=== PATIENT | female | born 1955 | race Caucasian/White ===

== ENCOUNTER 2016-05-24 06:30 | Emergency (ER) | payer MEDICAID ==
[2016-04-12 15:06] VITALS: BMI 39.6
[~2016-05-24 06:30] MED LIST: BENZTROPINE MESY1 MG PO; CARAFATE1 G PO; CYCLOBENZAPRINE10 MG PO; DILAUDID4 MG PO; HYDROCODONE-APA1 TAB PO; IBUPROFEN800 MG PO; LIPITOR80 MG PO; PERCOCET 10/3251 TA1 PO; PRILOSEC20 MG PO; PROLIXIN DEC25 MG/ML IM; REXULTI1 MG PO; SYNTHROID75 MCG PO; ULTRAM50 MG PO; VALIUM10 MG PO; XALATAN 0.0052.5 ML EACH EYE; ZESTRIL20 MG PO
[2016-05-24 08:39] LABS: APPEARANCE CLEAR (CLEAR); BILIRUBIN NEGATIVE (NEGATIVE); COLOR STRAW (YELLOW); GLUCOSE NEGATIVE (NEGATIVE); KETONE NEGATIVE (NEGATIVE); LEUKOCYTE ESTERASE NEGATIVE (NEGATIVE); NITRITE NEGATIVE (NEGATIVE); PROTEIN NEGATIVE (NEGATIVE); SPECIFIC GRAVITY 1.005 (1.005-1.020); UROBILINOGEN NORMAL (NORMAL)
== END 2016-05-24 09:00 | disposition home or self-care (01) ==
LOC: D.ER 06:30
PROVIDERS: Emergency Medicine
DX: R11.10 Vomiting, unspecified (principal); F11.23 Opioid dependence with withdrawal; T40.2X5A Adverse effect of other opioids, initial encounter; Y92.9 Unspecified place or not applicable; G89.18 Other acute postprocedural pain; M54.9 Dorsalgia, unspecified; E03.9 Hypothyroidism, unspecified

== ENCOUNTER → 2016-06-03 15:08 | Outpatient (CLI) | payer MEDICAID ==
[2016-04-12 15:06] VITALS: BMI 39.6
== END | disposition home or self-care (01) ==
LOC: D.MRI 15:00
DX: M25.552 Pain in left hip (principal)

== ENCOUNTER 2016-06-15 17:31 | Emergency (ER) | payer MEDICAID ==
[2016-04-12 15:06] VITALS: BMI 39.6
[2016-06-15 20:08] LABS: ALBUMIN 3.8 g/dL (3.4-5.0); ANION GAP 14.8 mmol/L (8-16); BILIRUBIN - TOTAL 0.43 mg/dL (0.2-1.3); CALCIUM 9.9 mg/dL (8.5-10.1); CARBON DIOXIDE 25.3 mmol/L (21.0-32.0); CREATININE - SERUM 0.9 mg/dL (0.6-1.3); POTASSIUM - SERUM 4.1 mmol/L (3.5-5.1); PROTEIN - SERUM 7.1 g/dL (6.4-8.2)
[2016-06-15 22:19] LABS: APPEARANCE CLEAR (CLEAR); BILIRUBIN NEGATIVE (NEGATIVE); COLOR YELLOW (YELLOW); GLUCOSE NEGATIVE (NEGATIVE); KETONE NEGATIVE (NEGATIVE); LEUKOCYTE ESTERASE TRACE (NEGATIVE); NITRITE NEGATIVE (NEGATIVE); PROTEIN NEGATIVE (NEGATIVE); UROBILINOGEN NORMAL (NORMAL)
[2016-06-15 22:20] LABS: BACTERIA FEW /hpf (NONE SEEN); RED CELLS - URINE OCC /hpf (0-5); WHITE CELLS - URINE OCC /hpf (0-5)
[2016-06-15 22:46] LABS: BASOPHILS 0.2 % (0.0-2.0); EOSINOPHILS 1.1 % (0-7); HEMATOCRIT 40.1 % (36.0-48.0); HEMOGLOBIN 13.3 g/dL (12-16); IMMATURE GRANULOCYTES 0.2 % (0-5); LYMPHOCYTES 25.2 % (15-50); MCH 28.2 pg (26.0-34.0); MCHC 33.2 g/dL (31.0-37.0); MEAN PLATELET VOLUME 9.3 fL (7.4-10.4); MONOCYTES 6.2 % (2-11); NEUTROPHILS 67.1 % (40-80); PLATELET COUNT 277 10x3/uL (130-400); RBC 4.72 10x6/uL (4.00-5.40); RDW 13.8 % (11.5-14.5); WBC 8.7 10x3/uL (4.8-10.8)
[2016-06-16 01:20] LABS: UDS - AMPHET NEGATIVE QUAL (NEGATIVE); UDS - BARB NEGATIVE QUAL (NEGATIVE); UDS - BENZO POSITIVE QUAL (NEGATIVE); UDS - COCAINE NEGATIVE QUAL (NEGATIVE); UDS - METH NEGATIVE QUAL (NEGATIVE); UDS - OPIATE NEGATIVE QUAL (NEGATIVE); UDS - PCP NEGATIVE QUAL (NEGATIVE); UDS - THC NEGATIVE QUAL (NEGATIVE)
== END 2016-06-16 05:53 | disposition short-term general hospital (02) ==
LOC: D.ER 17:31
PROVIDERS: Emergency Medicine; Physician Assistant Medical
DX: F41.9 Anxiety disorder, unspecified (principal); F23 Brief psychotic disorder; M54.9 Dorsalgia, unspecified; E03.9 Hypothyroidism, unspecified

== ENCOUNTER 2016-07-06 13:38 | Emergency (ER) | payer MEDICAID ==
[2016-04-12 15:06] VITALS: BMI 39.6
== END 2016-07-06 17:22 | disposition home or self-care (01) ==
LOC: D.ER 13:38
DX: J02.9 Acute pharyngitis, unspecified (principal); F41.9 Anxiety disorder, unspecified; E03.9 Hypothyroidism, unspecified

== ENCOUNTER 2016-07-14 10:48 | Emergency (ER) | payer MEDICAID ==
[2016-04-12 15:06] VITALS: BMI 39.6
== END 2016-07-14 12:22 | disposition home or self-care (01) ==
LOC: D.ER 10:48
DX: M54.5 Low back pain (principal)

== ENCOUNTER 2016-07-25 17:02 | Emergency (ER) | payer MEDICAID ==
[2016-04-12 15:06] VITALS: BMI 39.6
[2016-07-25 17:21] LABS: BASOPHILS 0.2 % (0.0-2.0); EOSINOPHILS 1.2 % (0-7); HEMATOCRIT 40.7 % (36.0-48.0); HEMOGLOBIN 13.4 g/dL (12-16); IMMATURE GRANULOCYTES 0.4 % (0-5); LYMPHOCYTES 25.3 % (15-50); MCH 28.4 pg (26.0-34.0); MCHC 32.9 g/dL (31.0-37.0); MCV 86.2 fL (80.0-100.0); MEAN PLATELET VOLUME 9.2 fL (7.4-10.4); MONOCYTES 7.1 % (2-11); NEUTROPHILS 65.8 % (40-80); PLATELET COUNT 315 10x3/uL (130-400); RBC 4.72 10x6/uL (4.00-5.40); RDW 14.2 % (11.5-14.5); WBC 12.1 10x3/uL (4.8-10.8)
[2016-07-25 17:45] LABS: ALBUMIN 4.2 g/dL (3.4-5.0); ANION GAP 19.7 mmol/L (8-16); BILIRUBIN - TOTAL 0.38 mg/dL (0.2-1.3); CALCIUM 9.9 mg/dL (8.5-10.1); CARBON DIOXIDE 22.8 mmol/L (21.0-32.0); CREATININE - SERUM 1.1 mg/dL (0.6-1.3); POTASSIUM - SERUM 3.5 mmol/L (3.5-5.1); PROTEIN - SERUM 7.9 g/dL (6.4-8.2)
[2016-07-25 19:55] LABS: APPEARANCE CLEAR (CLEAR); BILIRUBIN NEGATIVE (NEGATIVE); COLOR YELLOW (YELLOW); GLUCOSE NEGATIVE (NEGATIVE); KETONE NEGATIVE (NEGATIVE); LEUKOCYTE ESTERASE 1+ (NEGATIVE); NITRITE NEGATIVE (NEGATIVE); PROTEIN TRACE mg/dL (NEGATIVE); SPECIFIC GRAVITY 1.015 (1.005-1.020); UROBILINOGEN NORMAL (NORMAL)
[2016-07-25 19:57] LABS: BACTERIA FEW /hpf (NONE SEEN); CALCIUM OXALATE CRYSTALS 0-5 /hpf (NONE SEEN); EPITHELIAL CELLS 0-5 /hpf (0-5); MUCUS <1+ /lpf (NONE SEEN); RED CELLS - URINE 0-5 /hpf (0-5); WHITE CELLS - URINE 0-5 /hpf (0-5)
== END 2016-07-25 20:30 | disposition home or self-care (01) ==
LOC: D.ER 17:02
PROVIDERS: Emergency Medicine
DX: J20.9 Acute bronchitis, unspecified (principal); R11.0 Nausea

== ENCOUNTER 2016-07-28 08:30 | Inpatient (IN) | payer MEDICAID ==
[~2016-07-28] VITALS: Ht 172.7 cm; Wt 117.7 kg
[2016-07-28] VITALS (11 sets, daily range): BP systolic 128–158; BP diastolic 78–105; BMI 38.2
[2016-07-28 09:25] LABS: BASOPHILS 0.2 % (0.0-2.0); HEMATOCRIT 39.2 % (36.0-48.0); HEMOGLOBIN 12.6 g/dL (12-16); IMMATURE GRANULOCYTES 0.2 % (0-5); LYMPHOCYTES 15.4 % (15-50); MCHC 32.1 g/dL (31.0-37.0); MCV 87.1 fL (80.0-100.0); MEAN PLATELET VOLUME 9.3 fL (7.4-10.4); MONOCYTES 6.1 % (2-11); NEUTROPHILS 75.1 % (40-80); PLATELET COUNT 238 10x3/uL (130-400); RDW 14.3 % (11.5-14.5); WBC 6.1 10x3/uL (4.8-10.8)
[2016-07-28 09:33] LABS: UDS - AMPHET NEGATIVE QUAL (NEGATIVE); UDS - BARB NEGATIVE QUAL (NEGATIVE); UDS - BENZO POSITIVE QUAL (NEGATIVE); UDS - COCAINE NEGATIVE QUAL (NEGATIVE); UDS - METH NEGATIVE QUAL (NEGATIVE); UDS - OPIATE NEGATIVE QUAL (NEGATIVE); UDS - PCP NEGATIVE QUAL (NEGATIVE); UDS - THC NEGATIVE QUAL (NEGATIVE)
[2016-07-28 09:39] LABS: ALBUMIN 3.9 g/dL (3.4-5.0); ANION GAP 13.9 mmol/L (8-16); BILIRUBIN - TOTAL 0.28 mg/dL (0.2-1.3); CALCIUM 9.9 mg/dL (8.5-10.1); CARBON DIOXIDE 27.2 mmol/L (21.0-32.0); CREATININE - SERUM 1.1 mg/dL (0.6-1.3); POTASSIUM - SERUM 4.1 mmol/L (3.5-5.1); PROTEIN - SERUM 7.5 g/dL (6.4-8.2)
[2016-07-28 10:00] LABS: HCG SERUM NEGATIVE (NEGATIVE)
[2016-07-28 13:45] LABS: APPEARANCE CLEAR (CLEAR); BILIRUBIN NEGATIVE (NEGATIVE); COLOR YELLOW (YELLOW); GLUCOSE 50 mg/dL (NEGATIVE); KETONE NEGATIVE (NEGATIVE); LEUKOCYTE ESTERASE NEGATIVE (NEGATIVE); NITRITE NEGATIVE (NEGATIVE); PROTEIN TRACE mg/dL (NEGATIVE); SPECIFIC GRAVITY 1.015 (1.005-1.020); UROBILINOGEN NORMAL (NORMAL)
--- NOTE | 2016-07-28 14:30 | NUR ---
RESTRAINTS APPLIED. PATIENT PULLING AT LINES, CONFUSED AND HALLUCINATING. UNABLE TO REORIENT. BILATERAL SOFT WRIST RESTRAINTS APPLIED. SHE IS IN A ROOM DIRECTLY ACROSS FROM THE NURSES STATION AND STAFF WILL CONTINUE TO MONITOR CLOSELY.
--- NOTE | 2016-07-28 17:41 | NUR ---
ATTEMPTED TO FEED PATIENT DINNER. SHE WAS CHEWING AND POCKETING FOOD IN HER CHEEK AND WOULD NOT SWALLOW. EVEN OFFERING FLUID, THE FOOD REMAINED IN HER CHEEK. MOST OF THE FOOD WAS REMOVED AND THE TRAY WAS TAKEN FROM THE ROOM. WILL REPORT THIS TO HER NURSE KENYON PITTMAN.
--- NOTE | 2016-07-28 19:07 | NUR ---
REPORT RECEIVED AND ASSESSMENT COMPLETED. SEE FLOWSHEET FOR FULL DETAILS. PT IS VERY CONFUSED. HAVING VISUAL HALLUCINATIONS. FAMILY AT BEDSIDE. DISCUSSED PT MEDS AND CONFUSION. VSS. WILL CONTINUE TO MONITOR.
--- NOTE | 2016-07-28 23:25 | NUR ---
PT CONTINUES TO HAVE AUDITORY AND VISUAL HALLUCINATIONS. REASSESSMENT COMPLETED. SEE FLOWSHEET.
[2016-07-29] VITALS (24 sets, daily range): BP systolic 108–165; BP diastolic 56–97
--- NOTE | 2016-07-29 01:25 | NUR ---
PT REMOVED IV. WILL ATTEMPT TO RESITE.
--- NOTE | 2016-07-29 03:00 | NUR ---
REASSESSMENT COMPLETED. SEE FLOWHSHEET.
[2016-07-29 04:16] LABS: BASOPHILS 0.1 % (0.0-2.0); EOSINOPHILS 3.1 % (0-7); HEMATOCRIT 36.2 % (36.0-48.0); HEMOGLOBIN 11.5 g/dL (12-16); IMMATURE GRANULOCYTES 0.1 % (0-5); LYMPHOCYTES 13.7 % (15-50); MCH 27.6 pg (26.0-34.0); MCHC 31.8 g/dL (31.0-37.0); MEAN PLATELET VOLUME 9.2 fL (7.4-10.4); MONOCYTES 4.9 % (2-11); NEUTROPHILS 78.1 % (40-80); PLATELET COUNT 239 10x3/uL (130-400); RBC 4.16 10x6/uL (4.00-5.40); RDW 14.5 % (11.5-14.5); WBC 7.2 10x3/uL (4.8-10.8)
--- NOTE | 2016-07-29 04:17 | NUR ---
MULTIPLE ATTEMPTS AT NEW IV HAVE BEEN COMPLETED WITH NO SUCCESS. WILL HAVE OTHER RNS ON SHIFT ATTEMPT. PT HAS BEEN TALKING TO SELF IN ROOM. FREQUENTLY DISCUSSES HER MOTHERS HOUSE AND CATS THAT ARE IN THE ROOM "ATTACKING THE TREES" PT HAS MADE MULTIPLE ATTEMPTS AT PULLING OUT SY CATHETER, AND HAS BEEN VERY AGGRESSIVE PERIODICALLY. VSS AT THIS TIME. WILL CONTINUE TO MONITOR.
[2016-07-29 04:34] LABS: ALBUMIN 3.6 g/dL (3.4-5.0); ANION GAP 13.1 mmol/L (8-16); BILIRUBIN - TOTAL 0.44 mg/dL (0.2-1.3); CALCIUM 9.5 mg/dL (8.5-10.1); CARBON DIOXIDE 25.4 mmol/L (21.0-32.0); CREATININE - SERUM 0.9 mg/dL (0.6-1.3); POTASSIUM - SERUM 3.5 mmol/L (3.5-5.1)
--- NOTE | 2016-07-29 08:38 | NUR ---
IV access-22 gauge catheter placed in right hand for IV access. Josephine Aguirre RN
--- NOTE | 2016-07-29 09:48 | NUR ---
0945-PT COMMING OOB FREQUENTLY AND WITH DELUSIONAL IDEAS, TALKING TO FAMILY MEMBERS THAT ARE NOT IN ROOM. THREATNING TO SICK HER EX ON ME. HALDOL IM GIVEN.
--- NOTE | 2016-07-29 12:19 | NUR ---
PATIENT WAS ADMITTED WITH COGENTIN OVERDOSE. SHE IS CONFUSED AND HALLUCINATING. SHE IS NOT ABLE TO DISCUSS DISCHARGE PLANNING. I HAVE NOT SEEN ANY FAMILY HERE TO INTERVIEW. CM TO FOLLOW.
--- NOTE | 2016-07-29 13:03 | CN ---
PATIENT NAME:MONSTER SALAS MEDICAL RECORD: [id number] : 55 LOCATION:[facility].[id number] ADMIT DATE: 07/28/16 ACCOUNT: [id number] CONSULTING PHYSICIAN: ALONSO MENDENHALL MD REFERRING PHYSICIAN: JHON WEBSTER MD DATE OF CONSULTATION: 07/28/2016 Psychiatric Consultation IDENTIFYING DATA: The patient is 60 years old and she is admitted to the hospital on a voluntary basis. CHIEF COMPLAINT: Overdose. HISTORY OF PRESENT ILLNESS: The patient took an overdose of Cogentin. She took 60 tablets of it in an attempt to kill herself. She freely admits she did this. She is in physical restraints in the intensive care unit, actively hallucinating, restless and quite distressed. She clearly is responding to psychotic internal stimuli and she does have past psychiatric history of chronic mental illness. MENTAL STATUS EXAMINATION: The patient is awake, alert and oriented to person only. Her mood is angry. Her affect is constricted. Thought processes are disorganized and her memory, concentration and abstraction abilities could not be tested secondary to lack of cooperation. ASSESSMENT: 1. Schizophrenia. 2. Status post overdose. PLAN: The patient will be treated with those scheduled and p.r.n. Haldol. I recommend giving her sufficient dose of Haldol and Ativan as I have ordered on as needed basis to calm her since she is physically in restraints and is agitated and psychotic. She appears to be medically stable and I would recommend that she be transferred to acute inpatient psychiatric care as soon as medically stabilized. TRANSINT:[id number] Voice Confirmation ID: [id number] DOCUMENT ID: [id number] ALONSO MENDENHALL MD at 1303 CC: [id number] DICTATION DATE: 07/28/16 1640 PARTS CLERK PLANT MAINTENANCE: 07/28/16 2347 ADM IN [place] [id number] [place] [address]
--- NOTE | 2016-07-29 13:09 | NUR ---
1300- PT RESTING QUIETLY.
--- NOTE | 2016-07-29 19:30 | NUR ---
ASSESSMENT COMPLETE. S1S2. PT CONFUSED. IN WRIST RESTRAINTS. SY IN PLACE. RIGHT HAND PIV; PATENT. SINUS TACHYCARDIA SHOWING ON MONITOR. PERRLA. RADIAL AND PEDAL PULSE PALPATED. NO SIGNS OF DISTRESS. VSS. CALL LIGHT IN REACH. WILL CONTINUE TO MONITOR.
[2016-07-30] VITALS (17 sets, daily range): BP systolic 91–160; BP diastolic 44–98; Ht 172.7 cm; Wt 117.7 kg
--- NOTE | 2016-07-30 01:50 | NUR ---
PT RESTING; EYES CLOSED. VSS. CALL LIGHT IN REACH. WILL CONTINUE TO MONITOR.
--- NOTE | 2016-07-30 03:15 | NUR ---
REASSESSMENT COMPLETE. NOTED INCREASE IN AGITATION AND CONFUSION. VSS. WILL CONTINUE TO MONITOR.
[2016-07-30 03:29] LABS: BASOPHILS 0.1 % (0.0-2.0); EOSINOPHILS 3.8 % (0-7); HEMATOCRIT 36.6 % (36.0-48.0); HEMOGLOBIN 11.7 g/dL (12-16); IMMATURE GRANULOCYTES 0.1 % (0-5); LYMPHOCYTES 15.5 % (15-50); MCH 27.5 pg (26.0-34.0); MCV 86.1 fL (80.0-100.0); MEAN PLATELET VOLUME 9.1 fL (7.4-10.4); MONOCYTES 4.1 % (2-11); NEUTROPHILS 76.4 % (40-80); PLATELET COUNT 208 10x3/uL (130-400); RBC 4.25 10x6/uL (4.00-5.40); RDW 14.5 % (11.5-14.5); WBC 6.8 10x3/uL (4.8-10.8)
[2016-07-30 04:01] LABS: ALBUMIN 3.3 g/dL (3.4-5.0); ALKALINE PHOSPHATASE 139 U/L (46-116); ALT (SGPT) 37 U/L (10-68); BILIRUBIN - TOTAL 0.47 mg/dL (0.2-1.3); CALC OSMOLALITY 286 mosm/kg (275-300); CALCIUM 8.8 mg/dL (8.5-10.1); CARBON DIOXIDE 25.7 mmol/L (21.0-32.0); CHLORIDE - SERUM 107 mmol/L (98-107); CREATININE - SERUM 0.8 mg/dL (0.6-1.3); GLUCOSE 144 mg/dL (74-106); POTASSIUM - SERUM 3.3 mmol/L (3.5-5.1); PROTEIN - SERUM 6.6 g/dL (6.4-8.2); SODIUM 142 mmol/L (136-145); THYROID STIMULATING HORMONE 3.32 uIU/mL (0.36-3.74); UREA NITROGEN 15 mg/dL (7-18); eGFR NON AFRICAN AMERICAN 77 mL/min (90-120)
--- NOTE | 2016-07-30 04:32 | NUR ---
INCREASE IN AGGITATION. PRN ATIVAN GIVEN. SEE EMAR FOR DETAILS.
--- NOTE | 2016-07-30 07:54 | NUR ---
0800-PT COMMING OUT OF BED AND BECOMING AGGITATED. ATTEMPT TO REDIRECT AND PT NOT ABLE TO UNDERSTAND. PT CONFUSED AND TALKING TO PEOPLE IN THE ROOM THAT ARE NOT THERE. ASSISTED BACK TO BED AND HALDOL GIVEN.
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
--- NOTE | 2016-07-30 11:14 | NUR ---
PT SAT PT ON SIDE OF BED AND AMB FEW STEPS.
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
--- NOTE | 2016-07-30 12:45 | NUR ---
CM REASSESSMENT NOTE: CM CALLED LM REGARDING PATIENT REFERRAL AND HENRRY WITH LM STATED A PATIENT MUST BE OUT OF RESTRAINTS FOR 24 HRS. BEFORE THEY CAN BE ADMITTED. HENRRY STATED THAT IS THE STANDARD RULE FOR FACILITIES. CM NOTIFIED ANDRES IN ICU WITH THE REQUIREMENTS. CM WILL CONTINUE TO FOLLOW PATIENT WITH D/C NEEDS AND PLANS.
--- NOTE | 2016-07-30 13:38 | NUR ---
1200- RESTRAINTS OFF AND MEAL TRAY SERVED. INSTRUCTED PT TO USE CALL LIGHT. PT THEN COMMING OOB AND PULLING AT LINES. PT STATES SHE WANTS OOB. ASSISTED TO CHAIR. LINENS CHANGED AND PT BATHED. PT REFUSING TO STAY IN CHAIR AND IS UNSTEADY. ASSISTED BACK TO BED. PT COMMING OUT OF BED. HALDOL ALREADY GIVEN BUT PT STILL COMMING OOB. UNABLE TO REDIRECT. BUE NONVIOLENT RESTRAINTS PLACED.
--- NOTE | 2016-07-30 15:47 | NUR ---
1530-PT CONTINUES TO GET OOB WITH BUE NONVIOLENT RESTRAINTS ON. PT IS UNABLE TO BE REDIRECTED. PLACED PT INN SOURAV BED. PT DEV WELL.
--- NOTE | 2016-07-30 16:20 | NUR ---
PT IS ON HER HANDS AND KNEES IN THE SOURAV BED ASKING HOW TO START THIS CAR. REDIRECTED AND PT IS AGREABLE. ASKING FOR DRINK, ASSISTED WITH DRINK. PT DEV WELL. ATIVAN GIVEN
--- NOTE | 2016-07-30 17:56 | NUR ---
CM SPOKE WITH PATIENTS SON (BECKA CORBIN) REGARDING PLACEMENT AND HE STATED SHE HAD BEEN IN [facility] PROBABLY A MONTH AGO. HE STATED IT WOULD BE NICE TO GET HER BACK IN [facility] IF POSSIBLE-REFERRAL BEING SENT TODAY. SON ASKED IF SHE WOULD TRANSFER THIS WEEKEND AND CM STATED THAT WAS UNKNOWN AT THIS TIME. CM STATED IF PATIENT WAS TO DISCHARGE THAT CM OR NURSE WOULD CALL AND LET HIM KNOW AT THAT TIME. CM WILL CONTINUE TO FOLLOW PATIENT WITH D/C NEEDS AND PLANS. BECKA CORBIN- (SON) [phone] ([employer])
--- NOTE | 2016-07-30 18:39 | NUR ---
CM REASSESSMENT NOTE: LM CALLED AND STATED THEY HAD NO CAPABILITY FOR PATIENT AND COULD NOT TAKE HER. [facility] NO BED, [facility], [facility] [place] NOT APPROPRIATE FOR THEIR FACILITY REFERRED [facility]. REFERRAL SENT TO [place]. CM WILL CONTINUE TO FOLLOW PATIENT WITH D/C NEEDS AND PLANS.
--- NOTE | 2016-07-30 19:40 | NUR ---
Assessment complete. See flowsheet. Pt resting to left side in [place] bed and awakens to verbal stimulation and lethargic. Pt speech slurred and oriented to person only. Pt moving all extremities but not to request. Pt pushing stethoscope away during assessment but calms quickly. Lung sounds CTA. HR SR with S1S2 auscultated. All peripheral pulses +2 with capillary refill <3 seconds. Right hand PIV site CDI saline locked no s/s infection. BS +. Linens clean and dry. Pt left to rest with no s/s pain or distress at this time. CPOC.
--- NOTE | 2016-07-30 21:40 | NUR ---
PM sedatives held for somnolence. VSS. Pt resting quietly with VSS. See MAR. CPOC.
--- NOTE | 2016-07-30 23:40 | NUR ---
Reassessment complete. See flowsheet. No neuro changes to note. VSS. O2 RA. Lung sounds CTA. HR SR. BS +. Linens remain clean/dry. Pt continues to self-position for comfort. No other changes to note. [place] bed secured. CPOC.
[2016-07-31] VITALS (23 sets, daily range): BP systolic 99–145; BP diastolic 46–92
--- NOTE | 2016-07-31 01:40 | NUR ---
Pt resting quietly with VSS. NO s/s pain or distress and allowed to continue resting undisturbed. Call light and bedside table remain within pt reach. CPOC.
--- NOTE | 2016-07-31 03:40 | NUR ---
Reassessment complete. See flowsheet. Pt resting and awakens to verbal stimulation and screaming "I'm Cold" and provided with warm blanket. Pt now screaming "Apple Juice!" and provided with apple juice. NO other changes to note. VSS. Pt self-positioned to right side in nakia bed. Linens clean and dry. NO s/s pain. CPOC.
[2016-07-31 05:33] LABS: BASOPHILS 0.2 % (0.0-2.0); EOSINOPHILS 7.7 % (0-7); HEMATOCRIT 35.6 % (36.0-48.0); HEMOGLOBIN 11.2 g/dL (12-16); IMMATURE GRANULOCYTES 0.2 % (0-5); LYMPHOCYTES 18.9 % (15-50); MCH 27.6 pg (26.0-34.0); MCHC 31.5 g/dL (31.0-37.0); MCV 87.7 fL (80.0-100.0); MEAN PLATELET VOLUME 9.5 fL (7.4-10.4); MONOCYTES 5.2 % (2-11); NEUTROPHILS 67.8 % (40-80); PLATELET COUNT 220 10x3/uL (130-400); RBC 4.06 10x6/uL (4.00-5.40); RDW 14.5 % (11.5-14.5); WBC 5.7 10x3/uL (4.8-10.8)
--- NOTE | 2016-07-31 05:40 | NUR ---
Pt resting with VSS. NO s/s pain or distress.
[2016-07-31 05:45] LABS: ALBUMIN 3.1 g/dL (3.4-5.0); ALKALINE PHOSPHATASE 137 U/L (46-116); ALT (SGPT) 37 U/L (10-68); BILIRUBIN - TOTAL 0.51 mg/dL (0.2-1.3); CALC OSMOLALITY 283 mosm/kg (275-300); CALCIUM 8.7 mg/dL (8.5-10.1); CARBON DIOXIDE 26.1 mmol/L (21.0-32.0); CHLORIDE - SERUM 106 mmol/L (98-107); CREATININE - SERUM 0.8 mg/dL (0.6-1.3); GLUCOSE 134 mg/dL (74-106); POTASSIUM - SERUM 3.4 mmol/L (3.5-5.1); PROTEIN - SERUM 6.4 g/dL (6.4-8.2); SODIUM 141 mmol/L (136-145); UREA NITROGEN 14 mg/dL (7-18); eGFR NON AFRICAN AMERICAN 77 mL/min (90-120)
--- NOTE | 2016-07-31 06:30 | NUR ---
Pt incontinent of large, soft brown stool approx 800cc with void unk amt. Bed bath with gown and linen changes completed. KCL 40mEq PO in apple juice per elec.protocol.
--- NOTE | 2016-07-31 10:45 | NUR ---
Mónica spoke to Dr. Arias who stated patient is not ready for discharge unitl she is able to ambulate. He stated he would let us know when patient is stable for discharge. MÓNICA will begin seeking placement when MD feels patient is medically stable for discharge. MÓNICA has made referrals this am to [facility] who has no beds, [facility] who has no beds, and [facility] in [place] who has no beds.
--- NOTE | 2016-07-31 19:40 | NUR ---
Assessment complete. See flowsheet. Pt lethargic and resting upon entrance into room and c/o pain from head to feet upon awakening. Pt c/o feeling terrible. Pt c/o being too hot. Pt c/o thirst. Pt calmed...and reoriented to place, time and situation. Pt following commands to move all extremities with 3/5 strength. Generalized edema noted to all extremities. Pt receiving O2 via room air. Respirations even and unlabored. SPO2 97% Lung sounds CTA. HR SR with S1S2 auscultated. All peripheral pulses +2 with capillary refill <3 seconds. BS + to all quadrants. Pt helped up in bed despite c/o pain with movement. HOB elevated to 30 degrees. Diet soda provided per pt request. Call light and bedside table within pt reach. CPOC.
--- NOTE | 2016-07-31 21:30 | NUR ---
Pt resting quietly with VSS and no s/s pain or distress and allowed to continue resting undisturbed. Call light and bedside table remain within pt reach. CPOC.
--- NOTE | 2016-07-31 23:40 | NUR ---
Reassessment complete. See flowsheet. Pt resting and awakens to verbal stimulation and remains lethargic; no neuro changes to note. O2 RA. HR SR. S1S2 auscultated. All peripheral pulses +2 with capillary refill <3 seconds. Lung sounds CTA. Respirations even and unlabored. BS +. Pt continues to self-position for comfort with no other changes. Pt denies needs at this time and quickly back to sleep. Call light and bedside table with drink remain within pt reach. Linens clean/dry. CPOC.
[2016-08-01] VITALS (13 sets, daily range): BP systolic 100–151; BP diastolic 64–97
--- NOTE | 2016-08-01 01:40 | NUR ---
Pt resting quietly with VSS. No s/s pain or distress. Pt allowed to continue resting undisturbed. Call light and bedside table remain within pt reach. CPOC.
--- NOTE | 2016-08-01 03:40 | NUR ---
Reassessment complete. See flowsheet. Pt resting and awakens to verbal stimulation and remains lethargic; no neuro changes to note. O2 RA. HR SR. S1S2 auscultated. All peripheral pulses +2 with capillary refill <3 seconds. Lung sounds CTA. Respirations even and unlabored. BS +. Pt continues to self-position for comfort with no other changes. Pt denies needs at this time and quickly back to sleep. Call light and bedside table remain within pt reach. CPOC.
[2016-08-01 05:35] LABS: BASOPHILS 0.4 % (0.0-2.0); EOSINOPHILS 8.8 % (0-7); HEMATOCRIT 36.4 % (36.0-48.0); HEMOGLOBIN 11.5 g/dL (12-16); IMMATURE GRANULOCYTES 0.2 % (0-5); MCH 27.6 pg (26.0-34.0); MCHC 31.6 g/dL (31.0-37.0); MCV 87.5 fL (80.0-100.0); NEUTROPHILS 56.6 % (40-80); PLATELET COUNT 196 10x3/uL (130-400); RBC 4.16 10x6/uL (4.00-5.40); RDW 14.3 % (11.5-14.5); WBC 4.7 10x3/uL (4.8-10.8)
--- NOTE | 2016-08-01 05:40 | NUR ---
Pt resting quietly with VSS. NO s/s pain or distress and allowed to continue resting undisturbed. Call light and bedside table remain within pt reach. CPOC.
[2016-08-01 06:10] LABS: ALBUMIN 3.3 g/dL (3.4-5.0); ALKALINE PHOSPHATASE 136 U/L (46-116); ALT (SGPT) 39 U/L (10-68); BILIRUBIN - TOTAL 0.41 mg/dL (0.2-1.3); CALC OSMOLALITY 281 mosm/kg (275-300); CALCIUM 9.1 mg/dL (8.5-10.1); CARBON DIOXIDE 27.1 mmol/L (21.0-32.0); CHLORIDE - SERUM 104 mmol/L (98-107); CREATININE - SERUM 0.8 mg/dL (0.6-1.3); GLUCOSE 138 mg/dL (74-106); POTASSIUM - SERUM 3.7 mmol/L (3.5-5.1); PROTEIN - SERUM 6.7 g/dL (6.4-8.2); SODIUM 140 mmol/L (136-145); THYROID STIMULATING HORMONE 2.37 uIU/mL (0.36-3.74); UREA NITROGEN 15 mg/dL (7-18); eGFR NON AFRICAN AMERICAN 77 mL/min (90-120)
--- NOTE | 2016-08-01 14:06 | NUR ---
NO CHANGE NOTED
--- NOTE | 2016-08-01 15:00 | NUR ---
NO CHANGES NOTED
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
--- NOTE | 2016-08-01 19:30 | NUR ---
ASSESSMENT COMPLETE. S1S2. RR CLEAR; UNLABORED. CONFUSED. PT REFUSES TO KEEP THE ECG LEADS ATTACHED TO SKIN. RADIAL AND PEDAL PULSES PALPATED. PERRLA. SEE FLOW SHEET FOR DETAILS.
--- NOTE | 2016-08-01 19:48 | NUR ---
[facility] with no beds, Referral faxed to [facility] @ [facility]. Allyn to call ICU if they can accept paetint for admission.
--- NOTE | 2016-08-01 20:06 | NUR ---
FAMILY CALLED; SPOKE WITH FAMILY. UPDATE GIVEN.
--- NOTE | 2016-08-01 21:30 | NUR ---
PT SMEAR FECES ALL OVER SHEETS, BED, AND FLOOR. PT CLEANED ROOM CLEANED. COMPLETE BATH. COMPLETE LINEN CHANGE.
--- NOTE | 2016-08-01 22:45 | NUR ---
PT TO BEDSIDE COMMODE.
--- NOTE | 2016-08-01 23:45 | NUR ---
PT RESTING; EYES CLOSED. VSS. CALL LIGHT IN REACH. WILL CONTINUE TO MONITOR.
--- NOTE | 2016-08-02 01:40 | NUR ---
PT RESTING; EYES CLOSED. NO DISTRESS NOTED. CALL LIGHT IN REACH. WILL CONTINUE TO MONITOR.
[2016-08-02 03:50] LABS: BASOPHILS 0.2 % (0.0-2.0); HEMOGLOBIN 11.2 g/dL (12-16); IMMATURE GRANULOCYTES 0.2 % (0-5); LYMPHOCYTES 25.7 % (15-50); MCH 27.1 pg (26.0-34.0); MCHC 31.1 g/dL (31.0-37.0); MEAN PLATELET VOLUME 9.4 fL (7.4-10.4); MONOCYTES 7.2 % (2-11); NEUTROPHILS 58.7 % (40-80); PLATELET COUNT 211 10x3/uL (130-400); RBC 4.14 10x6/uL (4.00-5.40); RDW 14.1 % (11.5-14.5)
[2016-08-02 03:51] LABS: WBC 6.1 10x3/uL (4.8-10.8)
[2016-08-02 03:57] LABS: ALBUMIN 3.2 g/dL (3.4-5.0); ALKALINE PHOSPHATASE 128 U/L (46-116); ALT (SGPT) 37 U/L (10-68); BILIRUBIN - TOTAL 0.34 mg/dL (0.2-1.3); CALC OSMOLALITY 282 mosm/kg (275-300); CARBON DIOXIDE 28.6 mmol/L (21.0-32.0); CHLORIDE - SERUM 106 mmol/L (98-107); CREATININE - SERUM 0.8 mg/dL (0.6-1.3); GLUCOSE 132 mg/dL (74-106); POTASSIUM - SERUM 3.5 mmol/L (3.5-5.1); PROTEIN - SERUM 6.3 g/dL (6.4-8.2); SODIUM 141 mmol/L (136-145); UREA NITROGEN 12 mg/dL (7-18); eGFR NON AFRICAN AMERICAN 77 mL/min (90-120)
[2016-08-02 07:00] VITALS: BP 134/68
--- NOTE | 2016-08-02 07:00 | NUR ---
AWAKE ALERT AND ORIENTED TO PLACE AND TIME, CONFUSED TO SITUATION. COOPERATIVE WITH STAFF, UP TO BSC AD-RODRIGO. NO NOTED DISTRESS AT PRESENT
--- NOTE | 2016-08-02 10:50 | NUR ---
NUTRITION MONITORING & EVAL CHART REVIEWED. NURSING REPORTS PT WITH GOOD INTAKE REG DIET. REMAINS AT LOW NUTRITIONAL RISK. RD FOLLOWING
--- NOTE | 2016-08-02 11:00 | NUR ---
NO CHANGES NOTED, NO DISTESS NOTED. CALM AND COOPERATIVE
--- NOTE | 2016-08-02 11:52 | NUR ---
MÓNICA SPOKE WITH CHRISTIANE IN ICU AND HE STATED HE NEEDED THE [employer] PAPERS FAXED TO HIM FROM PATIENTS SON (BECKA). MÓNICA CALLED BECKA WITH REQUEST OF ICU AND HE STATED HE WOULD GET THE PAPERS FOR [employer] FAXED TO ICU CATHERINE. FAX NUMBER PER CHRISTIANE ([phone]) WAS GIVEN TO BECKA. MÓNICA WILL CONTINUE TO FOLLOW PATIENT WITH D/C NEEDS AND PLANS.
--- NOTE | 2016-08-02 12:00 | NUR ---
SPOKE WITH MERCY CHEN. FROM [facility], SON TO FAX PAPER WORK RT [employer].
[2016-08-02 15:00] VITALS: BP 136/86
--- NOTE | 2016-08-02 15:07 | NUR ---
MÓNICA CALLED ICU AND SPOKE WITH CHRISTIANE AND HE STATED HE FAXED GU[employer] PAPERS AND ALL OTHER REQUEST TO ILIANA AT [facility]. CHRISTIANE STATED HE WAS WAITING ON A PHONE CALL FROM [facility]. CM CALLED [facility] AND THEY STATED THEY WERE ABOUT TO CALL AND STATED THEY COULD NOT MEET HER PHYSICAL NEEDS DUE TO THE INCONTINCE ISSUE AND OTHER NEEDS. MÓNICA WILL CONTINUE TO TRY TO FIND PLACEMENT.
--- NOTE | 2016-08-02 16:00 | NUR ---
CM- REASSESSMENT NOTE: MÓNICA SPOKE WITH EPISCOPAL IN [place] (CARLY) REGARDING PATIENT PLACEMENT. CLINICALS WERE FAXED TO [phone]. CM WAITING ON DECISION FROM EPISCOPAL. CARLY STATED SHE WOULD LET US KNOW CATHERINE. MÓNICA WILL CONTINUE TO FOLLOW PATIENT WITH D/C NEEDS AND PLANS. BRIDGETTE VIEIRA P [phone] F [phone]
--- NOTE | 2016-08-02 18:23 | NUR ---
REPORT CALLED TO [facility] MOUNA RN, AT [phone] AMBULANCE NOTIFIED OF TRANSPORT
--- NOTE | 2016-08-02 19:00 | NUR ---
AMBULANCE ARRIVED TO SALES AND SERVICE REPRESENTATIVE PT. PT DISCHARGED. ALL BELONGING PLACED WITH PT.
--- NOTE | 2016-08-03 08:51 | NUR ---
LATE ENTRY: MÓNICA REC. CALL AT 5:15PM YESTERDAY FROM ICU (CHRISTIANE) STATING PATIENT HAD BEEN ACCEPTED TO [facility] IN [place] ROOM 208 BED 1. MÓNICA SPOKE WITH SON THIS AM AND GAVE HIM PHONE NUMBER TO THE FACILITY
== END 2016-08-02 19:00 | disposition short-term general hospital (02) | DRG 918 ==
LOC: D.ER 08:30 → D.ICU 10:30 → OBSVTIME 07-29 13:36 → D.ICU 07-29 13:37
PROVIDERS: Emergency Medicine; ADMIT Family Medicine Adult Medicine
PROC: 0T9B70Z Drainage of Bladder with Drainage Device, Via Natural or Artificial Opening (ICD-10-PCS; principal; 2016-07-28)
DX: T44.3X2A Poisoning by other parasympatholytics [anticholinergics and antimuscarinics] and spasmolytics, intentional self-harm, initial encounter (principal); F20.9 Schizophrenia, unspecified; I10 Essential (primary) hypertension; G35 Multiple sclerosis; F41.9 Anxiety disorder, unspecified; G89.29 Other chronic pain; M54.9 Dorsalgia, unspecified; R73.9 Hyperglycemia, unspecified; E03.9 Hypothyroidism, unspecified; E66.9 Obesity, unspecified; H54.42 Blindness, left eye, normal vision right eye; R32 Unspecified urinary incontinence; Z78.1 Physical restraint status; Z68.38 Body mass index [BMI] 38.0-38.9, adult; H17.9 Unspecified corneal scar and opacity

== ENCOUNTER 2017-06-05 10:41 | Emergency (ER) | payer MEDICAID ==
[2016-07-30 10:33] VITALS: BMI 38.6
== END 2017-06-05 14:37 | disposition home or self-care (01) ==
LOC: D.ER 10:41
DX: M54.16 Radiculopathy, lumbar region (principal)

== ENCOUNTER 2017-07-24 04:46 | Emergency (ER) | payer MEDICAID ==
[2016-07-30 10:33] VITALS: BMI 38.6
[2017-07-24 05:10] LABS: APPEARANCE CLEAR (CLEAR); BILIRUBIN NEGATIVE (NEGATIVE); COLOR YELLOW (YELLOW); GLUCOSE NEGATIVE (NEGATIVE); KETONE NEGATIVE (NEGATIVE); NITRITE NEGATIVE (NEGATIVE); PROTEIN NEGATIVE (NEGATIVE); SPECIFIC GRAVITY 1.015 (1.005-1.020); UROBILINOGEN NORMAL (NORMAL)
[2017-07-24 05:23] LABS: UDS - AMPHET NEGATIVE QUAL (NEGATIVE); UDS - BARB NEGATIVE QUAL (NEGATIVE); UDS - BENZO POSITIVE QUAL (NEGATIVE); UDS - COCAINE NEGATIVE QUAL (NEGATIVE); UDS - OPIATE NEGATIVE QUAL (NEGATIVE); UDS - PCP NEGATIVE QUAL (NEGATIVE); UDS - THC NEGATIVE QUAL (NEGATIVE)
[2017-07-24 05:48] LABS: BASOPHILS 0.4 % (0-2); EOSINOPHILS 4.2 % (0-7); HEMATOCRIT 40.6 % (36.0-48.0); HEMOGLOBIN 13.5 g/dL (12-16); IMMATURE GRANULOCYTES 0.2 % (0-5); MCH 28.4 pg (26.0-34.0); MCHC 33.3 g/dL (31.0-37.0); MCV 85.5 fL (80.0-100.0); MEAN PLATELET VOLUME 9.2 fL (7.4-10.4); MONOCYTES 6.9 % (2-11); NEUTROPHILS 55.3 % (40-80); PLATELET COUNT 183 10x3/uL (130-400); RBC 4.75 10x6/uL (4.00-5.40); RDW 14.8 % (11.5-14.5); WBC 5.2 10x3/uL (4.8-10.8)
[2017-07-24 06:05] LABS: ALBUMIN 4.1 g/dL (3.4-5.0); ALKALINE PHOSPHATASE 105 U/L (46-116); ALT (SGPT) 18 U/L (10-68); CALC OSMOLALITY 279 mosm/kg (275-300); CALCIUM 8.9 mg/dL (8.5-10.1); CARBON DIOXIDE 21.8 mmol/L (21.0-32.0); CHLORIDE - SERUM 103 mmol/L (98-107); CREATININE - SERUM 0.7 mg/dL (0.6-1.3); GLUCOSE 137 mg/dL (74-106); POTASSIUM - SERUM 3.7 mmol/L (3.5-5.1); PROTEIN - SERUM 7.6 g/dL (6.4-8.2); SODIUM 138 mmol/L (136-145); UREA NITROGEN 19 mg/dL (7-18); eGFR NON AFRICAN AMERICAN 90 mL/min (90-120)
[2017-07-24 08:33] LABS: CHOL - HDL RATIO 3.9 ratio (2.3-4.1); LDL-HDL RATIO 2.5 ratio (1.5-3.5)
== END 2017-07-24 10:48 | disposition short-term general hospital (02) ==
LOC: D.ER 04:46
PROVIDERS: Family Medicine
DX: F23 Brief psychotic disorder (principal)

== ENCOUNTER 2020-08-14 16:25 | Emergency (ER) | payer MEDICAID ==
[~2020-08-14] VITALS: Ht 172.7 cm; Wt 81.6 kg
[~2020-08-14 16:25] MED LIST changes: +BENZTROPINE MESY2 MG PO; +CLARITIN 10 MG10 MG PO; +LEXAPRO10 MG PO; +MELATONIN5 MG PO; +MIRALAX17 GM PO; +MYLANTA / MAALO30 ML PO; +PERCOCET 5-3251 TAB PO; +RISPERDAL2 MG PO; +TRAZODONE HCL100 MG PO; +VALIUM 2 MG TAB2 MG PO; +VITAMIN B-121000 MCG PO; +VITAMIN D5000 UNI2 PO
[2020-08-14 16:38] VITALS: Ht 172.7 cm; Wt 81.6 kg
[2020-08-14 17:23] LABS: UDS - AMPHET NEGATIVE QUAL (NEGATIVE); UDS - BARB NEGATIVE QUAL (NEGATIVE); UDS - BENZO NEGATIVE QUAL (NEGATIVE); UDS - COCAINE NEGATIVE QUAL (NEGATIVE); UDS - OPIATE NEGATIVE QUAL (NEGATIVE); UDS - PCP NEGATIVE QUAL (NEGATIVE); UDS - THC NEGATIVE QUAL (NEGATIVE)
[2020-08-14 17:54] LABS: BACTERIA MODERATE HPF (NONE SEEN); BILIRUBIN NEGATIVE (NEGATIVE); KETONE NEGATIVE (NEGATIVE); NITRITE NEGATIVE (NEGATIVE); UROBILINOGEN NORMAL mg/dL (< 2)
[2020-08-14 18:15] LABS: BASOPHILS 0.2 % (0-2); HEMATOCRIT 34.7 % (36.0-48.0); HEMOGLOBIN 11.8 g/dL (12-16); IMMATURE GRANULOCYTES 0.2 % (0-5); LYMPHOCYTE ABS# 1.25 10x3/uL (1.18-3.74); LYMPHOCYTES 24.5 % (15-50); MCH 29.5 pg (26.0-34.0); MCV 86.8 fL (80.0-100.0); MEAN PLATELET VOLUME 8.7 fL (7.4-10.4); MONOCYTES 10.8 % (2-11); NEUTROPHIL ABS# 3.19 10x3/uL (1.56-6.13); NEUTROPHILS 62.3 % (40-80); PLATELET COUNT 189 10x3/uL (130-400); RDW 12.7 % (11.5-14.5); WBC 5.1 10x3/uL (4.8-10.8)
[2020-08-14 18:17] LABS: APTT 29.9 SECONDS (22.8-39.4); INR 1.14 (0.85-1.17); PROTIME 13.5 SECONDS (11.6-15.0)
[2020-08-14 18:19] LABS: CALC OSMOLALITY 276 mosm/kg (275-300); CALCIUM 8.9 mg/dL (8.5-10.1); CHLORIDE - SERUM 100 mmol/L (98-107); CREATININE - SERUM 0.8 mg/dL (0.6-1.3); GLUCOSE 131 mg/dL (74-106); POTASSIUM - SERUM 4.2 mmol/L (3.5-5.1); SODIUM 138 mmol/L (136-145); UREA NITROGEN 11 mg/dL (7-18); eGFR NON AFRICAN AMERICAN 76 mL/min (90-120)
[2020-08-14 18:35] LABS: ALBUMIN 3.9 g/dL (3.4-5.0); ALKALINE PHOSPHATASE 98 U/L (30-120); ALT (SGPT) 24 U/L (10-68); CKMB 0.5 U/L (0.0-3.6); CREATINE KINASE 33 UL (21-215); MAGNESIUM - SERUM 1.9 mg/dL (1.8-2.4); PROTEIN - SERUM 6.7 g/dL (6.4-8.2); THYROID STIMULATING HORMONE 0.02 uIU/mL (0.36-3.74)
[2020-08-14 18:37] LABS: TROPONIN-I < 0.017 ng/mL (0.000-0.060)
[2020-08-14 18:38] LABS: ACETAMINOPHEN < 10.0 ug/mL (10.0-30.0)
[2020-08-14 20:52] LABS: SARS-CoV-2 ANTIGEN NEGATIVE- SARS-COV-2 (NEGATIVE)
[2020-08-14] MEDS ORDERED: BAYER CHEWABLE81 MG PO ×3 (21:58→22:13)
[2020-08-14] MEDS ORDERED: ZOCOR40 MG PO ×3 (21:58→22:17)
[2020-08-14] MEDS ORDERED: MACROBID100 MG PO (21:59)
[2020-08-14] MEDS ORDERED: OMEPRAZOLE20 M1 PO (22:02)
[2020-08-14] MEDS ORDERED: MULTI-DAY VITAM1 TAB PO (22:03)
[2020-08-14] MEDS ORDERED: COLACE100 MG PO (22:03)
[2020-08-14] MEDS ORDERED: ACETAMINOPHEN325 MG PO (22:04)
[2020-08-14] MEDS ORDERED: BISACODYL5 MG PO (22:05)
[2020-08-14] MEDS ORDERED: MYLANTA / MAALO30 ML PO (22:05)
[2020-08-14] MEDS ORDERED: DULCOLAX10 MG/SUPP RC (22:06)
[2020-08-14] MEDS ORDERED: MILK OF MAGNESI30 ML PO (22:07)
[2020-08-14] MEDS ORDERED: IMODIUM2 MG PO (22:09)
[2020-08-14] MEDS ORDERED: PROTONIX40 MG PO (22:13)
[2020-08-14] MEDS ORDERED: NAPROSYN500 MG PO (22:13)
[2020-08-14] MEDS ORDERED: ULTRAM50 MG PO (22:14)
[2020-08-14] MEDS ORDERED: SEROQUEL100 MG PO ×2 (22:15→22:17)
[2020-08-14] MEDS ORDERED: DEPAKOTE250 MG PO (22:16)
[2020-08-14] MEDS ORDERED: SYNTHROID75 MCG PO (22:16)
[2020-08-14] MEDS ORDERED: ZYPREXA5 MG PO (22:18)
[2020-08-14] MEDS ORDERED: DEPAKOTE SPRIN125 MG PO (22:18)
[2020-08-14] MEDS ORDERED: ZYPREXA10 MG IM (22:24)
[2020-08-14] MEDS ORDERED: HALDOL5 MG/ML IM (22:25)
[2020-08-14] MEDS ORDERED: LORAZEPAM1 MG/0.5 M IM (22:27)
[2020-08-14 23:06] VITALS: BP 132/74
== END 2020-08-14 23:08 ==
LOC: D.ER 16:25
PROVIDERS: Emergency Medicine; Family Medicine
DX: F91.9 Conduct disorder, unspecified (principal); F29 Unspecified psychosis not due to a substance or known physiological condition; I10 Essential (primary) hypertension